=== PATIENT | male | born 1960 | race Caucasian/White ===

== ENCOUNTER 2022-11-24 08:23 | Emergency (ER) | payer OTHER ==
[~2022-11-24] VITALS: Ht 165.1 cm; Wt 77.3 kg
[2022-11-24] MEDS ORDERED: [UNRECOGNIZED DRUG - OTHER] PO (08:29)
[2022-11-24] MEDS ORDERED: AMLO5TAB66 PO (08:29)
[2022-11-24 09:02] LABS: COVID AG,FIA SOURCE NASAL SWAB
[2022-11-24 09:46] LABS: INFLUENZA TYPE A NEGATIVE FOR TYPE A (NEGATIVE); INFLUENZA TYPE B NEGATIVE FOR TYPE B (NEGATIVE)
[2022-11-24] MEDS ORDERED: AZIT250T9 PO (12:36)
[2022-11-24] MEDS ORDERED: ALBU18HF12 IH (12:36)
[2022-11-24 13:56] VITALS: BP 162/82
== END 2022-11-24 16:12 | disposition home or self-care (01) ==
LOC: EDUNIT# 08:23 → EMS 08:27
DX: J06.9 Acute upper respiratory infection, unspecified (principal); J44.9 Chronic obstructive pulmonary disease, unspecified; I10 Essential (primary) hypertension; Z20.822 Contact with and (suspected) exposure to COVID-19
CPT/HCPCS: 71045; 87804; 99284